=== PATIENT | male | born 1980 | race American Indian/Alaskan Native ===

== ENCOUNTER 2016-12-04 02:08 | Emergency (ER) | payer MEDICAID, OTHER ==
--- NOTE | 2016-12-04 02:36 | EDM.PDOC ---
ED HPI GENERAL MEDICAL PROBLEM - General Stated Complaint: LAC Time Seen by Provider: 12/04/16 02:31 Source of Information: Reports: Patient History Limitations: Reports: No Limitations - History of Present Illness INITIAL COMMENTS - FREE TEXT/NARRATIVE: c/o lac in kitchen at home, cut L thumb pad on a broken plate thumbs continues to drip on floor as pt continues to look at it every few seconds when he held pressure on it continuously for 3 minutes it stopped bleeding [place], gets flu vaccine yearly ED ROS GENERAL - Review of Systems Review Of Systems: See Below Constitutional: Reports: No Symptoms HEENT: Reports: No Symptoms Respiratory: Reports: No Symptoms Cardiovascular: Reports: No Symptoms Endocrine: Reports: No Symptoms GI/Abdominal: Reports: No Symptoms : Reports: No Symptoms Musculoskeletal: Reports: No Symptoms Skin: Reports: Wound Neurological: Reports: No Symptoms Psychiatric: Reports: No Symptoms Hematologic/Lymphatic: Reports: No Symptoms Immunologic: Reports: No Symptoms ED EXAM, GENERAL - Physical Exam Exam: See Below Exam Limited By: No Limitations General Appearance: Alert, WD/WN, No Apparent Distress Skin Exam: Other (on the center of the L fingerpad is a 6 mm curvilinear lac, just into fat layer, 1% lido local with a #31 needle used, cleaned x 10 with gauze and NS, 4-0 Prolene x 3 used to appose edges, good apposition ) Course - Vital Signs Last Recorded V/S: Last Vital Signs Temp 36.8 C 12/04/16 02:10 Pulse 84 12/04/16 02:10 Resp 20 12/04/16 02:10 BP 124/72 12/04/16 02:10 Pulse Ox - Orders/Labs/Meds Meds: Medications Discontinued Medications Generic Name Dose Route Start Last Admin Trade Name Alexandra PRN Reason Stop Dose Admin Lidocaine HCl 5 ml 12/04/16 02:20 Xylocaine-Mpf 1% INJECT 12/04/16 02:21 ONETIME ONE Departure - Departure Time of Disposition: 02:59 Disposition: Home, Self-Care 01 Condition: good Clinical Impression: Laceration of thumb, left - Discharge Information Instructions: Laceration Care, Adult Referrals: PCP,None [Primary Care Provider] - Additional Instructions: Keep clean and dry and covered with a dressing and fingerguard all the time. Change dressing once a day. For possible infection, take cephalexin 500 mg 1 tab 3 times a day for 3 days. While the risk of infection is low, see your physician the same day for any increase in redness, swelling, pain, warmth, drainage or fever. Do not put pressure on it. Wear the fingerguard both day and night. May leave open to the air for 30 minutes in the evening. See your physician in 7 days (Tuesday) to remove sutures. Call your Physician or Return to Emergency Department if: * Your condition worsens in any way. * You develop fever greater than 100.4. * You have vomitting that does not stop with medications. * You have pain that is not controlled with medications.
[2016-12-04 03:11] VITALS: BP 146/72
== END 2016-12-04 03:02 | disposition home or self-care (01) ==
LOC: FB.ED 02:08
PROC: 0HQGXZZ Repair Left Hand Skin, External Approach (ICD-10-PCS; principal; 2016-12-04)
DX: S61.012A Laceration without foreign body of left thumb without damage to nail, initial encounter (principal); W26.8XXA Contact with other sharp object(s), not elsewhere classified, initial encounter; Y93.89 Activity, other specified; Y92.000 Kitchen of unspecified non-institutional (private) residence as the place of occurrence of the external cause
CPT/HCPCS: 12001; 99282; A4217; 12002

== ENCOUNTER 2017-04-02 08:22 | Emergency (ER) | payer OTHER ==
--- NOTE | 2017-04-02 10:33 | EDM.PDOC ---
ED HPI GENERAL MEDICAL PROBLEM - General Stated Complaint: SOB Time Seen by Provider: 04/02/17 08:30 Source of Information: Reports: Patient History Limitations: Reports: No Limitations - History of Present Illness INITIAL COMMENTS - FREE TEXT/NARRATIVE: Patient is a 36 year old Man who was in Longterm for 45 days recently. He got out on March 28, 2017 and has been drinking constantly since then. He has fullness in his epigastric area and this makes him feel it is hard to breathe. He also has noted some constipation and hard stools and he has occassionally some bright red blood on his toilet paper. No other pain or complaints. He did call the ambulance for help since the [facility] was not open at 7:30 this Tuesday morning. No fever or chills or other complaints. Onset: Gradual Onset Date: 03/28/17 Onset Time: 09:00 Duration: Day(s): (5), Getting Worse Location: Reports: Abdomen Quality: Reports: Ache, Burning Severity: Mild Improves with: Reports: None Worsens with: Reports: None Context: Reports: Other (Drinking constantly for 5 days.) Associated Symptoms: Reports: No Other Symptoms - Related Data Allergies Allergy/AdvReac Type Severity Reaction Status Date / Time No Known Allergies Allergy Verified 12/04/16 03:17 Home Meds: Home Meds NK [No Known Home Meds] 12/04/16 [History] Past Medical History - Past Health History Medical/Surgical History: Denies Medical/Surgical History Gastrointestinal History: Reports: None Genitourinary History: Reports: None Musculoskeletal History: Reports: None Social & Family History - Family History Family Medical History: Noncontributory - Tobacco Use Smoking Status *Q: Never Smoker - Caffeine Use Caffeine Use: Reports: Coffee Other Caffeine Use: Occassional coffee drinker. - Alcohol Use Days Per Week of Alcohol Use: 3 Number of Drinks Per Day: 2 Total Drinks Per Week: 6 - Recreational Drug Use Recreational Drug Use: No ED ROS GENERAL - Review of Systems Review Of Systems: See Below Constitutional: Reports: Decreased Appetite HEENT: Reports: No Symptoms Respiratory: Reports: No Symptoms Cardiovascular: Reports: No Symptoms Endocrine: Reports: No Symptoms GI/Abdominal: Reports: Abdominal Pain (In epigastric area.), Bloody Stool ( Little blood that is bright red on toilet paper.) : Reports: No Symptoms Musculoskeletal: Reports: No Symptoms Skin: Reports: No Symptoms Neurological: Reports: No Symptoms Psychiatric: Reports: No Symptoms Hematologic/Lymphatic: Reports: No Symptoms ED EXAM, GI/ABD - Physical Exam Exam: See Below Exam Limited By: Other (Can smell alcohol on his breath but he is speaking normally.) General Appearance: Alert Eyes: Bilateral: Normal Appearance, EOMI Ears: Normal External Exam, Normal Canal, Hearing Grossly Normal, Normal TMs Nose: Normal Inspection, Normal Mucosa, No Blood Throat/Mouth: Normal Inspection, Normal Lips, Normal Teeth, Normal Gums, Normal Oropharynx, Normal Voice, No Airway Compromise Head: Atraumatic, Normocephalic Neck: Normal Inspection, Supple, Non-Tender, Full Range of Motion Respiratory/Chest: No Respiratory Distress Cardiovascular: Normal Peripheral Pulses, Regular Rate, Rhythm, No Edema, No Gallop, No JVD, No Murmur, No Rub GI/Abdominal Exam: Normal Bowel Sounds, Soft, Non-Tender, No Organomegaly, No Distention, No Abnormal Bruit, No Mass, Pelvis Stable Rectal (Males) Exam: Other (Anal area irritation.) Back Exam: Normal Inspection, Full Range of Motion, NT Extremities: Normal Inspection, Normal Range of Motion, Non-Tender, Normal Capillary Refill, No Pedal Edema Neurological: Alert, Oriented, CN II-XII Intact, Normal Cognition, Normal Gait, Normal Reflexes, No Motor/Sensory Deficits Psychiatric: Normal Affect, Normal Mood Skin Exam: Warm, Dry, Intact, Normal Color, No Rash Lymphatic: No Adenopathy Course - Vital Signs Text/Narrative:: Uneventful ED course. He improved during the hospital course since he was sobering up. He will use Tums for his heartburn and stop drinking. He will use Milk of Magnesia 30 ml orally to help with the constipation and will drink a lot of water. He will use A and D ointment for his rectal irritation. He will follow up with his PCP next week if not improving. - Orders/Labs/Meds Orders: Active Orders 24 hr Category Date Time Status CXR [Chest 1V Frontal] [CR] Stat Exams 04/02/17 08:42 Taken EKG 12 Lead [EK] Routine Ther 04/02/17 08:41 Ordered Labs: Laboratory Tests 04/02/17 04/02/17 04/02/17 Range/Units 08:50 08:50 08:50 WBC 6.5 (4.5-12.0) X10-3/uL RBC 5.43 (4.30-5.75) x10(6)uL Hgb 15.9 H (11.5-15.5) g/dL Hct 47.1 (30.0-51.3) % MCV 86.7 (80-96) fL MCH 29.3 (27.7-33.6) pg MCHC 33.7 (32.2-35.4) g/dL RDW 12.9 (11.5-15.5) % Plt Count 294 (125-369) X10(3)uL MPV 7.2 L (7.4-10.4) fL Neut % (Auto) 87.0 H (46-82) % Lymph % (Auto) 9.5 L (13-37) % [place] % (Auto) 3.3 L (4-12) % Eos % (Auto) 0 L (1.0-5.0) % Baso % (Auto) 0 (0-2) % Neut # (Auto) 5.7 (1.6-8.3) # Lymph # (Auto) 0.6 (0.6-5.0) # [place] # (Auto) 0.2 (0.0-1.3) # Eos # (Auto) 0.0 (0.0-0.8) # Baso # (Auto) 0.0 (0.0-0.2) # Sodium 141 (135-145) mmol/L Potassium 3.9 (3.5-5.3) mmol/L Chloride 102 (100-110) mmol/L Carbon Dioxide 25 (23-29) mmol/L BUN 9 (5-20) mg/dL Creatinine 0.8 (0.6-1.3) mg/dL Est Cr Clr Drug Dosing TNP Estimated GFR (MDRD) > 60 (>60) BUN/Creatinine Ratio 11.3 (9-20) Glucose 148 H (80-116) mg/dL Calcium 9.6 (8.6-10.2) mg/dL Total Bilirubin 1.2 (0.1-1.3) mg/dL AST 92 H (5-27) IU/L ALT 51 H (14-26) IU/L Alkaline Phosphatase 98 (56-112) IU/L Troponin I < 0.01 L (0.02-0.06) NG/ML Total Protein 8.2 H (6.0-8.0) g/dL Albumin 4.5 (3.5-5.2) g/dL Globulin 3.7 g/dL Albumin/Globulin Ratio 1.2 Ethyl Alcohol (<0.01) % 04/02/17 Range/Units 08:50 WBC (4.5-12.0) X10-3/uL RBC (4.30-5.75) x10(6)uL Hgb (11.5-15.5) g/dL Hct (30.0-51.3) % MCV (80-96) fL MCH (27.7-33.6) pg MCHC (32.2-35.4) g/dL RDW (11.5-15.5) % Plt Count (125-369) X10(3)uL MPV (7.4-10.4) fL Neut % (Auto) (46-82) % Lymph % (Auto) (13-37) % [place] % (Auto) (4-12) % Eos % (Auto) (1.0-5.0) % Baso % (Auto) (0-2) % Neut # (Auto) (1.6-8.3) # Lymph # (Auto) (0.6-5.0) # [place] # (Auto) (0.0-1.3) # Eos # (Auto) (0.0-0.8) # Baso # (Auto) (0.0-0.2) # Sodium (135-145) mmol/L Potassium (3.5-5.3) mmol/L Chloride (100-110) mmol/L Carbon Dioxide (23-29) mmol/L BUN (5-20) mg/dL Creatinine (0.6-1.3) mg/dL Est Cr Clr Drug Dosing Estimated GFR (MDRD) (>60) BUN/Creatinine Ratio (9-20) Glucose (80-116) mg/dL Calcium (8.6-10.2) mg/dL Total Bilirubin (0.1-1.3) mg/dL AST (5-27) IU/L ALT (14-26) IU/L Alkaline Phosphatase (56-112) IU/L Troponin I (0.02-0.06) NG/ML Total Protein (6.0-8.0) g/dL Albumin (3.5-5.2) g/dL Globulin g/dL Albumin/Globulin Ratio Ethyl Alcohol 0.34 H* (<0.01) % Departure - Departure Time of Disposition: 10:53 Disposition: Home, Self-Care 01 Condition: Good Clinical Impression: Alcohol intoxication, Gastritis, Anal irritation, Constipation - Discharge Information Referrals: PCP,None [Primary Care Provider] - - My Orders Last 24 Hours: My Active Orders 04/02/17 08:41 EKG 12 Lead [EK] Routine 04/02/17 08:42 CXR [Chest 1V Frontal] [CR] Stat - Assessment/Plan Last 24 Hours: My Active Orders 04/02/17 08:41 EKG 12 Lead [EK] Routine 04/02/17 08:42 CXR [Chest 1V Frontal] [CR] Stat
[2017-04-02 15:36] VITALS: BP 171/78
--- NOTE | 2017-04-04 14:00 | CR ---
INDICATION: Epigastric pain. CHEST: A single frontal view of the chest was obtained portable upright, 2016. No comparisons. Evidence of exogenous obesity is noted. The heart, mediastinum, and bony thorax were unremarkable. Overlying EKG leads are noted. An active infiltrate or effusion was not seen. No free air is noted under the hemidiaphragm leaves. IMPRESSION: No acute process. MTDD
== END 2017-04-02 10:45 | disposition home or self-care (01) ==
LOC: FB.ED 08:22
DX: F10.129 Alcohol abuse with intoxication, unspecified (principal); K29.70 Gastritis, unspecified, without bleeding; K62.89 Other specified diseases of anus and rectum; K59.00 Constipation, unspecified; Y90.0 Blood alcohol level of less than 20 mg/100 ml
CPT/HCPCS: 36415; 71010; 80053; 84484; 85025; 93005; 99285; G0480